=== PATIENT | male | born 1980 | race Caucasian/White ===

== ENCOUNTER 2017-02-13 09:19 | Emergency (ER) | payer MEDICAID ==
[~2017-02-13] VITALS: Ht 157.5 cm; Wt 83.0 kg
[2017-02-13 09:23] VITALS: Ht 157.5 cm; Wt 83.0 kg
[2017-02-13] MEDS ORDERED: BEN25 PO (10:35)
[2017-02-13] MEDS ORDERED: CLOT30CR24 TOP (10:35)
[2017-02-13] MEDS ORDERED: MED4DP PO (10:35)
--- NOTE | 2017-02-13 10:55 | ERD ---
ER Documentation Chief Complaint Date/Time DATE: 02/13/17 TIME: 10:54 Chief Complaint Complains of an allergic reaction today HPI 36-year-old male otherwise healthy presents with a generalized rash that is pruritic for the past 2-3 months. Patient states that it comes and goes and it is on his arms, he is also developed a new rash in his groin for the last week. He has not had any shortness breath, chest pain, fevers or chills. He denies any new foods, medications, lotions or allergens. ROS All systems reviewed and are negative except as per history of present illness. Medications Home Meds Active Scripts Methylprednisolone* (Medrol* DOSE PACK) 4 Mg/Dose-Pack Tab.ds.pk, 4 MG PO . DIRECTED, #1 PACKET Prov:JEFF CAAL PA-C 02/13/17 Diphenhydramine Hcl* (Benadryl*) 25 Mg Cap, 25 MG PO Q6, #30 CAP Prov:JEFF CAAL PA-C 02/13/17 Clotrimazole* (Clotrimazole* AF) 1% - 30 Gm Cream.gm., 1 APPLIC TOP BID for 7 Days, TUB Prov:JEFF CAAL PA-C 02/13/17 Allergies Allergies: Coded Allergies: No Known Allergy (Unverified , 02/13/17) PMhx/Soc Medical and Surgical Hx: pt denies Medical Hx, pt denies Surgical Hx Hx Alcohol Use: No Hx Substance Use: No Hx Tobacco Use: No Smoking Status: Never smoker Physical Exam Vitals Vital Signs Date Time Temp Pulse Resp B/P Pulse Ox O2 Delivery O2 Flow Rate FiO2 02/13/17 09:23 97.8 76 20 134/75 94 Physical Exam General: Well-developed, well-nourished. The patient appears in no acute distress. HEENT: Head is normocephalic, atraumatic. No scleral icterus. Pupils are equal , round, and reactive. Oropharynx is clear, no evidence of angioedema neck: Supple. Nontender. Lungs: Clear to auscultation. Normal air movement. Heart: Regular rate and rhythm. S1 and S2 are normal. No murmurs, gallops, or rubs. Abdomen: Soft, nontender, nondistended. Bowel sounds are normoactive. Extremities: No clubbing or cyanosis. Normal pulses. Moving extremities x 4. No weakness. Neurologic: Alert and oriented 3. No focal deficits. Skin: Bilateral groins, have erythema, thickened rash. Generalized macular rash on arms and trunk. Results 24 hrs Current Medications Medications (Trade) Dose Ordered Sig/Festus Route PRN Reason Start Time Stop Time Status Last Admin Dose Admin Diphenhydramine HCl (Benadryl) 25 mg ONCE ONCE PO 02/13/17 11:00 02/13/17 11:00 DC 02/13/17 10:37 Procedures/MDM 36-year-old male comes in with generalized dermatitis. There are no signs of any infectious origin, cellulitis, anaphylaxis. Patient also has bilateral groin rash, will be treated for fungal infection given the location and pruritic nature. Patient's allergic symptoms have stabilized while they have been evaluated in the department without evidence of persistent systemic reaction. Patient is healthy and capable of treating and responding to rebound reactions. Patient appropriate for outpatient allergy work up and treatment. Departure Diagnosis: Primary Impression: Dermatitis Condition: Good Patient Instructions: What Is Atopic Dermatitis? Additional Instructions: Call your primary care doctor TOMORROW for an appointment during the next 1-2 days.See the doctor sooner or return here if your condition worsens before your appointment time. JEFF CAAL PA-C Feb 13, 2017 10:55
[2017-02-13] MEDS ORDERED: DIPHENHYDRAMINE 25 MG CAP PO ONE (11:00)
== END 2017-02-13 10:43 | disposition home or self-care (01) ==
LOC: FTE 09:19
DX: L30.9 Dermatitis, unspecified (principal)
CPT/HCPCS: Z7502; Z7610; 99284

== ENCOUNTER 2017-09-28 13:16 | Emergency (ER) | END 2017-09-28 16:16 | disposition home or self-care (01) ==